=== PATIENT | female | born 1985 | race African-American/Black ===

== ENCOUNTER 2017-11-08 08:33 | Emergency (ER) | payer SELFPAY ==
[~2017-11-08] VITALS: Ht 160 cm; Wt 90.7 kg
[2017-11-08 09:04] VITALS: BP 129/78
--- NOTE | 2017-11-08 09:06 | Emergency Room Report ---
History of Present Illness General Chief Complaint: Complications Source: Patient Present Illness Allergies: Coded Allergies: No Known Allergies (Unverified , 11/08/17) Patient History Last Menstrual Period: 3 weeks ago Now: Yes - positive test Nursing Documentation-[facility] Past Medical History: No Stated History Physical Exam Physical Exam Vital Signs Date Time Temp Pulse Resp B/P (MAP) Pulse Ox O2 Delivery O2 Flow Rate FiO2 11/08/17 08:54 99.0 64 20 129/78 100 Room Air 99.0 Medical Decision Making Last Vital Signs Date Time Temp Pulse Resp B/P (MAP) Pulse Ox O2 Delivery O2 Flow Rate FiO2 11/08/17 08:54 99.0 64 20 129/78 100 Room Air 99.0 Referrals: NON PHYSICIAN (PCP) Norma Sparks M.D. Nov 08, 2017 09:06
--- NOTE | 2017-11-08 09:10 | Emergency Room Report ---
History of Present Illness General Chief Complaint: Complications Source: Patient Present Illness HPI 32-year-old female , 1 , last menstrual period was 4 weeks ago p/w vaginal bleeding x 9 days Patient states that she has had very light spotting for 9 days. no passage of clots. +crampy abdominal pain. Denies fever, chills, n/v, diarrhea, dysuria. Patient states that she saw the doctor 5 days ago who performed a urine test which was positive, no blood work or ultrasound was done Denies hx of ectopic pregnancies. Allergies: Coded Allergies: No Known Allergies (Unverified , 11/08/17) Patient History Past Medical History: see triage record Past Surgical History: none Pertinent Family History: none Last Menstrual Period: 3 weeks ago Now: Yes - positive test : 2 Reviewed Nursing Documentation: PMH: Agreed; PSxH: Agreed Nursing Documentation-PMH Past Medical History: No Stated History Review of Systems All Other Systems: negative except mentioned in HPI Physical Exam Vital Signs Date Time Temp Pulse Resp B/P (MAP) Pulse Ox O2 Delivery O2 Flow Rate FiO2 11/08/17 08:54 99.0 64 20 129/78 100 Room Air 99.0 Sp02 EP Interpretation: reviewed, normal General Appearance: normal inspection, well appearing, no apparent distress, alert, GCS 15, non-toxic Head: normocephalic, atraumatic Eyes: bilateral eye normal inspection, bilateral eye PERRL, bilateral eye EOMI ENT: normal ENT inspection, normal pharynx, normal voice, moist mucus membranes Neck: normal inspection, full range of motion, supple Respiratory: normal inspection, lungs clear, normal breath sounds, no respiratory distress, no retraction, no wheezing, speaking full sentences, chest symmetrical Cardiovascular #1: normal inspection, regular rate, rhythm, no edema, normal capillary refill Cardiovascular #2: 2+ radial (R), 2+ radial (L) Gastrointestinal: normal inspection, non tender, soft, non-distended, no guarding Musculoskeletal: normal inspection, back normal, normal range of motion, non- tender Neurologic: normal inspection, alert, oriented x3, responsive, motor strength/ tone normal, sensory intact, normal gait, speech normal Psychiatric: normal inspection, judgement/insight normal, memory normal Skin: normal inspection, normal color, no rash, warm/dry, well hydrated, normal turgor Medical Decision Making Diagnostic Impression: Primary Impression: Threatened ER Course 32-year-old female presents with vaginal bleeding DDX: Threatened / inevitable vs. ectopic Plan: cbc, bmp, bhcg, type and screen, ua, ucx pelvic sono Consider Rhogam is Rh- ER course: Pt remains stable/nontoxic appearing in ED. Pt has been ambulatory. VSS\ PELVIC sono performed - no gestational sac. pt bhcg low61 Disposition: Patient will be discharged to home. Strict return precautions to discussed with patient such as high fever, chills, abdominal pain, intractable nausea or vomiting, worsening/heavy bleeding, lightheadedness or syncope. Patient verbalized understanding. Patient instructed to follow up with her OBGYN within 48 hours without fail for repeat bhcg and sonogram. Patient agrees with plan. Please note that this Emergency Department Report was dictated using [employer] handler technology software, occasionally this can lead to erroneous entry secondary to interpretation by the dictation equipment. Laboratory Tests Test 11/08/17 08:50 11/08/17 09:00 Urine Color Pale yellow Urine Appearance Clear Urine pH 6.5 (4.5-8.0) Urine Specific [place] 1.010 (1.005-1.035) Urine Protein 1+ (NEGATIVE) H Urine Glucose (UA) Negative (NEGATIVE) Urine Ketones Negative (NEGATIVE) Urine Occult Blood 5+ (NEGATIVE) H Urine Nitrite Negative (NEGATIVE) Urine Bilirubin Negative (NEGATIVE) Urine Urobilinogen Normal MG/DL (0.0-1.0) Urine Leukocyte Esterase 1+ (NEGATIVE) H Urine RBC 2-4 /HPF (0 - 2) H Urine WBC 2-4 /HPF (0 - 2) Urine Squamous Epithelial Cells Moderate /LPF (NONE/OCC) H Urine Bacteria Few /HPF (NONE) Urine HCG, Qualitative Positive (NEGATIVE) White Blood Count 5.4 K/UL (4.8-10.8) Red Blood Count 4.43 M/UL (4.20-5.40) Hemoglobin 12.3 G/DL (12.0-16.0) Hematocrit 38.0 % (37.0-47.0) Mean Corpuscular Volume 86 FL (80-99) Mean Corpuscular Hemoglobin 27.8 PG (27.0-31.0) Mean Corpuscular Hemoglobin Concent 32.4 G/DL (32.0-36.0) Red Cell Distribution Width 12.7 % (11.6-14.8) Platelet Count 228 K/UL (150-450) Mean Platelet Volume 8.0 FL (6.5-10.1) Neutrophils (%) (Auto) 53.1 % (45.0-75.0) Lymphocytes (%) (Auto) 38.1 % (20.0-45.0) Monocytes (%) (Auto) 6.2 % (1.0-10.0) Eosinophils (%) (Auto) 0.6 % (0.0-3.0) Basophils (%) (Auto) 2.0 % (0.0-2.0) Sodium Level 136 MMOL/L (136-145) Potassium Level 3.7 MMOL/L (3.5-5.1) Chloride Level 105 MMOL/L (98-107) Carbon Dioxide Level 27 MMOL/L (21-32) Anion Gap 4 mmol/L (5-15) L Blood Urea Nitrogen 7 mg/dL (7-18) Creatinine 0.7 MG/DL (0.55-1.30) Estimate Glomerular Filtration Rate > 60 mL/min (>60) Glucose Level 110 MG/DL (74-106) H Calcium Level 8.4 MG/DL (8.5-10.1) L Total Bilirubin 0.2 MG/DL (0.2-1.0) Aspartate Amino Transferase (AST) 15 U/L (15-37) Alanine Aminotransferase (ALT) 26 U/L (12-78) Alkaline Phosphatase 50 U/L (46-116) Total Protein 6.7 G/DL (6.4-8.2) Albumin 3.4 G/DL (3.4-5.0) Globulin 3.3 g/dL Albumin/Globulin Ratio 1.0 (1.0-2.7) Lipase 93 U/L (73-393) Human Chorionic Gonadotropin, Quant 61 mIU/mL (1-6) H CT/MRI/US Diagnostic Results CT/MRI/US Diagnostic Results : Imaging Test Ordered: pelvic sono Impression no gestational sac Last Vital Signs Date Time Temp Pulse Resp B/P (MAP) Pulse Ox O2 Delivery O2 Flow Rate FiO2 11/08/17 08:54 99.0 64 20 129/78 100 Room Air 99.0 Disposition: HOME, SELF-CARE Condition: Improved Referrals: NON PHYSICIAN (PCP) Norma Sparks M.D. Nov 08, 2017 09:10
[2017-11-08 09:24] LABS: EOSINOPHILS % (AUTO) 0.6 % (0.0-3.0); HEMOGLOBIN 12.3 G/DL (12.0-16.0); LYMPHOCYTES % (AUTO) 38.1 % (20.0-45.0); MEAN CORPUSCULAR VOLUME 86 FL (80-99); MONOCYTES % (AUTO) 6.2 % (1.0-10.0); NEUTROPHILS % (AUTO) 53.1 % (45.0-75.0); PLATELET COUNT 228 K/UL (150-450); RED BLOOD COUNT 4.43 M/UL (4.20-5.40); RED CELL DISTRIBUTION WIDTH 12.7 % (11.6-14.8); WHITE BLOOD COUNT 5.4 K/UL (4.8-10.8)
[2017-11-08 09:27] LABS: APPEARANCE,URINE CLEAR; BILIRUBIN, URINE NEGATIVE (NEGATIVE); COLOR,URINE PALE YELLOW; GLUCOSE, URINE (UA) NEGATIVE (NEGATIVE); KETONES,URINE NEGATIVE (NEGATIVE); LEUKOCYTE ESTERASE ,URINE 1+ (NEGATIVE); NITRITE,URINE NEGATIVE (NEGATIVE); PH,URINE 6.5 (4.5-8.0); PROTEIN,URINE 1+ (NEGATIVE); UROBILINOGEN,URINE NORMAL MG/DL (0.0-1.0)
[2017-11-08 09:36] LABS: ANION GAP 4 mmol/L (5-15); BLOOD UREA NITROGEN 7 mg/dL (7-18); CALCIUM 8.4 MG/DL (8.5-10.1); CARBON DIOXIDE 27 MMOL/L (21-32); CHLORIDE 105 MMOL/L (98-107); CREATININE 0.7 MG/DL (0.55-1.30); POTASSIUM 3.7 MMOL/L (3.5-5.1); SODIUM 136 MMOL/L (136-145)
[2017-11-08 09:41] LABS: ALANINE AMINOTRANSFERASE 26 U/L (12-78); ALBUMIN 3.4 G/DL (3.4-5.0); ALKALINE PHOSPHATASE 50 U/L (46-116); ASPARTATE AMINO TRANSFERASE 15 U/L (15-37); BILIRUBIN,TOTAL 0.2 MG/DL (0.2-1.0)
[2017-11-08 11:05] VITALS: BP 131/76
--- NOTE | 2017-11-09 12:09 | Diagnostic Imaging Report ---
Indication:Lower abdominal and pelvic pain. Vaginal bleeding. Positive test Technique: Grayscale and duplex Doppler imaging of the pelvis performed utilizing a transabdominal scan and endovaginal scan. Comparison: None Findings: No IUP identified. Endometrial stripe measures 6 mm. Small amount of free fluid is present. Dopplerable blood flow within both ovaries which appear normal. A dominant, probable paraovarian cyst noted measuring 1.6 cm adjacent to the right ovary. Uterus is 7.8 x 5.4 x 4.5 cm. Right ovary 4.5 x 3 x 2.1 cm. Left ovary 4.3 x 3.7 x 1.8 cm. IMPRESSION: Negative pelvic ultrasound. No IUP identified. Early ectopic is not excludable. Correlate with quantitative beta-hCG. Follow-up quantitative beta-hCG and ultrasound recommended. Right ovarian versus parovarian cyst. Follow-up recommended.
== END 2017-11-08 11:05 | disposition home or self-care (01) ==
LOC: EMR 08:40
DX: O20.0 Threatened abortion (principal)
CPT/HCPCS: 36415; 76856; 80053; 81003; 81025; 83690; 84702; 85025; 86850; 86900; 86901; 99284

== ENCOUNTER 2019-01-09 12:20 | Emergency (ER) | payer OTHER ==
[~2019-01-09] VITALS: Ht 157.5 cm; Wt 77.6 kg
[2019-01-09 12:23] VITALS: BP 115/80
--- NOTE | 2019-01-09 12:40 | Emergency Room Report ---
History of Present Illness General Chief Complaint: Skin Rash/Abscess Source: Patient Present Illness HPI 33-year-old female with no significant past medical history here complaining of 2 days of semi-pruritic and painful rash in the left upper quadrant. Patient reports that she has been on amoxicillin for 3 days due to sinus infection however denies generalized body rash. Denies recent travel, camping, contact with allergens and animals. Patient reports that the rash first year with a tingling sensation in left upper quadrant and then blisters performed. Denies abdominal pain, nausea vomiting, fever and chills, pain radiation. Patient reports that the pain is mostly localized 3 out of 10 without radiation and has not taken any medication for pain however has been applying evix-qiy-aoyzpld hydrocortisone cream and been taking Benadryl for pruritus. Denies chest pain, shortness of breath, palpitation, and all other associated symptoms. Patient has regular menses and denies . Patient denies exposure to young infants and immunocompromise patient. Allergies: Coded Allergies: No Known Allergies (Unverified , 11/08/17) Patient History Past Medical History: see triage record Past Surgical History: unable to obtain Pertinent Family History: none Last Menstrual Period: 12/28/18 Now: No Immunizations: UTD Reviewed Nursing Documentation: PMH: Agreed; PSxH: Agreed Nursing Documentation-PMH Past Medical History: No Stated History Review of Systems All Other Systems: negative except mentioned in HPI Physical Exam Vital Signs Date Time Temp Pulse Resp B/P (MAP) Pulse Ox O2 Delivery O2 Flow Rate FiO2 01/09/19 12:23 98.1 99 18 115/80 (92) 96 Room Air Sp02 EP Interpretation: reviewed, normal General Appearance: normal inspection, well appearing, no apparent distress, alert, GCS 15 Head: normocephalic, atraumatic Eyes: bilateral eye normal inspection, bilateral eye PERRL ENT: normal ENT inspection, hearing grossly normal, normal pharynx Neck: normal inspection, full range of motion, supple Respiratory: normal inspection, chest non-tender, lungs clear, no wheezing Cardiovascular #1: normal inspection, normal peripheral pulses, regular rate, rhythm, no edema, no murmur, normal capillary refill Gastrointestinal: non tender, soft, no organomegaly, no peritonitis, other - Vesicular rash in the left upper quadrant and dermatomal formation and grouped Rectal: deferred Genitourinary: no CVA tenderness Musculoskeletal: normal inspection, back normal Neurologic: normal inspection, alert, oriented x3 Psychiatric: normal inspection, judgement/insight normal Skin: warm/dry, palpation normal, rash - Vesicular grouped rash in left upper quadrant in a dermatomal presentation Lymphatic: normal inspection, no adenopathy Medical Decision Making PA Attestation All my diagnosis and treatment plans were reviewed ad discussed with my supervising physician Dr. Scott Diagnostic Impression: Primary Impression: Shingles rash ER Course 33-year-old female with no significant past medical history here complaining of 2 days of semi-pruritic and painful rash in the left upper quadrant. Patient reports that she has been on amoxicillin for 3 days due to sinus infection however denies generalized body rash. Denies recent travel, camping, contact with allergens and animals. Patient reports that the rash first year with a tingling sensation in left upper quadrant and then blisters performed. Denies abdominal pain, nausea vomiting, fever and chills, pain radiation. Patient reports that the pain is mostly localized 3 out of 10 without radiation and has not taken any medication for pain however has been applying wzot-flr-mxhkusl hydrocortisone cream and been taking Benadryl for pruritus. Denies chest pain, shortness of breath, palpitation, and all other associated symptoms. Patient has regular menses and denies . Patient denies exposure to young infants and immunocompromise patient. Ddx considered but are not limited to: shingles, scabies, cellulitis, drug reaction, contact dermatitis Vital signs: are WNL, pt. is afebrile H&PE are most consistent with: shingles herpes zoster virus ORDERS: acyclovir, hydrocortisone cream ED INTERVENTIONS: None required at this time. DISCHARGE: At this time pt. is stable for d/c to home. Will provide printed patient care instructions, and any necessary prescriptions. Care plan and follow up instructions have been discussed with the patient prior to discharge. Follow-up with a primary care provider referral to lead quality technician advised take medication as directed Last Vital Signs Date Time Temp Pulse Resp B/P (MAP) Pulse Ox O2 Delivery O2 Flow Rate FiO2 01/09/19 12:23 98.1 99 18 115/80 (92) 96 Room Air Disposition: HOME, SELF-CARE Condition: Stable Scripts Hydrocortisone Oint 2.5% (Hydrocortisone Oint 2.5%) Y Oint 1 APPLIC TP BID, #20 GM Prov: Korey Plunkett 01/09/19 Acyclovir* (ZOVIRAX*) 800 Mg Tablet 800 MG ORAL FIVE TIMES A DAY for 7 Days, #35 TAB Prov: Korey Plunkett 01/09/19 Patient Instructions: Shingles, [id number] Additional Instructions: Take medication as directed follow-up with a primary care provider, avoid scrubbing over the affected area Korey Plunkett Jan 09, 2019 12:40
[2019-01-09] MEDS ORDERED: HYDROCORTISONE30 G1 TP (12:42)
[2019-01-09] MEDS ORDERED: ACYCLOVIR800 MG ORAL (12:42)
--- NOTE | 2019-01-09 12:50 | NUR ---
ED Nurse Note: Patient presents to ER due to multiple, red blisters on LLQ abdomen. Reports no fever or chills. No N/V noted. No facial grimacing or guarding noted.
--- NOTE | 2019-01-09 13:00 | NUR ---
ED Nurse Note: Pt cleared by health care Provider for discharge. DC instructions/prescription was given and explained to pt and verbalized understanding of teachings. All medical deviecs such as ID band removed. Pt is AAO x4, ambulatory and left with all personal belongings.
== END 2019-01-09 13:00 | disposition home or self-care (01) ==
LOC: EMR 12:55
DX: B02.9 Zoster without complications (principal)
CPT/HCPCS: 99282

== ENCOUNTER 2019-06-03 12:53 | Emergency (ER) | payer OTHER ==
[~2019-06-03] VITALS: Ht 160 cm; Wt 83.9 kg
[~2019-06-03 12:53] MED LIST: ACYCLOVIR800 MG ORAL; HYDROCORTISONE30 G1 TP
[2019-06-03] MEDS ORDERED: NKM (13:01)
--- NOTE | 2019-06-03 13:25 | Emergency Room Report ---
History of Present Illness General Chief Complaint: Gastrointestinal Bleed Source: Patient Present Illness HPI Patient presents with complaints of nausea vomiting Onset 2 days ago Patient reports that she has had several episodes of vomiting and now noticed some questionable red spots which she thought might be blood there is a note on the chart regarding pain rating towards her back however patient reports that her back pain is from her breast Denies any other recent fall or trauma Allergies: Coded Allergies: No Known Allergies (Unverified , 11/08/17) Patient History Past Medical History: see triage record Last Menstrual Period: currently Now: No : 2 Para: 0 Reviewed Nursing Documentation: PMH: Agreed; PSxH: Agreed Nursing Documentation-PMH Past Medical History: No Stated History Review of Systems All Other Systems: negative except mentioned in HPI Physical Exam Vital Signs Date Time Temp Pulse Resp B/P (MAP) Pulse Ox O2 Delivery O2 Flow Rate FiO2 06/03/19 12:56 98.2 94 17 114/78 (90) 97 Room Air Sp02 EP Interpretation: reviewed, normal General Appearance: well appearing, no apparent distress Head: normocephalic, atraumatic Eyes: bilateral eye PERRL, bilateral eye EOMI ENT: hearing grossly normal, normal pharynx, TMs + canals normal, uvula midline Neck: full range of motion, supple, no meningismus, no bony tend Respiratory: lungs clear, normal breath sounds, no rhonchi, no respiratory distress, no retraction, no accessory muscle use Cardiovascular #1: normal peripheral pulses, regular rate, rhythm, no edema, no gallop, no JVD, no murmur Gastrointestinal: normal bowel sounds, non tender, soft, no mass, no organomegaly, non-distended, no guarding, no hernia, no pulsatile mass, no rebound Genitourinary: no CVA tenderness Musculoskeletal: normal inspection Neurologic: oriented x3, responsive, inserter III-XII nml as tested, motor strength/ tone normal, sensory intact Psychiatric: mood/affect normal Skin: no rash Lymphatic: normal inspection, no adenopathy Medical Decision Making Diagnostic Impression: Primary Impression: Abdominal pain Additional Impression: Vomiting ER Course With the patient's history and examination, multiple differentials considered, including but not limited to , ectopic , ovarian torsion, gastritis, cholecystitis, pancreatitis, appendicitis Given the patient's complaints of possible blood in her vomit upper GI bleeding also considered patient's blood work are appropriate Patient remains hemodynamically stable No signs of any active vomiting at the facility And patient on repeat evaluation is stable for continued close outpatient follow -up Labs Test 06/03/19 13:15 White Blood Count 6.0 K/UL (4.8-10.8) Red Blood Count 4.59 M/UL (4.20-5.40) Hemoglobin 12.8 G/DL (12.0-16.0) Hematocrit 39.7 % (37.0-47.0) Mean Corpuscular Volume 86 FL (80-99) Mean Corpuscular Hemoglobin 27.8 PG (27.0-31.0) Mean Corpuscular Hemoglobin Concent 32.1 G/DL (32.0-36.0) Red Cell Distribution Width 11.9 % (11.6-14.8) Platelet Count 262 K/UL (150-450) Mean Platelet Volume 7.2 FL (6.5-10.1) Neutrophils (%) (Auto) 40.8 % (45.0-75.0) Lymphocytes (%) (Auto) 51.3 % (20.0-45.0) Monocytes (%) (Auto) 6.0 % (1.0-10.0) Eosinophils (%) (Auto) 0.3 % (0.0-3.0) Basophils (%) (Auto) 1.7 % (0.0-2.0) Urine HCG, Qualitative Negative (NEGATIVE) Sodium Level 138 MMOL/L (136-145) Potassium Level 3.2 MMOL/L (3.5-5.1) Chloride Level 104 MMOL/L (98-107) Carbon Dioxide Level 26 MMOL/L (21-32) Anion Gap 9 mmol/L (5-15) Blood Urea Nitrogen 10 mg/dL (7-18) Creatinine 0.9 MG/DL (0.55-1.30) Estimat Glomerular Filtration Rate > 60 mL/min (>60) Glucose Level 98 MG/DL (74-106) Calcium Level 8.6 MG/DL (8.5-10.1) Total Bilirubin 0.5 MG/DL (0.2-1.0) Aspartate Amino Transf (AST/SGOT) 13 U/L (15-37) Alanine Aminotransferase (ALT/SGPT) 23 U/L (12-78) Alkaline Phosphatase 49 U/L (46-116) Total Protein 7.1 G/DL (6.4-8.2) Albumin 3.6 G/DL (3.4-5.0) Globulin 3.5 g/dL Albumin/Globulin Ratio 1.0 (1.0-2.7) Lipase 45 U/L (73-393) Rhythm Strip Diag. Results EP Interpretation: yes Rate: 66 Rhythm: NSR, no PVC's, no ectopy Last Vital Signs Date Time Temp Pulse Resp B/P (MAP) Pulse Ox O2 Delivery O2 Flow Rate FiO2 06/03/19 12:56 98.2 94 17 114/78 (90) 97 Room Air Status: improved Disposition: HOME, SELF-CARE Condition: Improved Scripts Ondansetron* (ZOFRAN*) 4 Mg Tablet 4 MG ORAL Q6H PRN for Nausea & Vomiting for 7 Days, #21 TAB Prov: Adia Scott DO 06/03/19 Famotidine (PEPCID AC) 20 Mg Tablet 20 MG PO DAILY, #12 TAB Prov: Adia Scott DO 06/03/19 Referrals: MARIA L JOHNSON,REFERRING (PCP) Additional Instructions: Patient is provided with the discharge instructions notified to follow up with primary doctor in the next 2-3 days otherwise return to the er with any worsening symptoms. Please note that this report is being documented using [employer] technology. This can lead to erroneous entry secondary to incorrect interpretation by the dictating instrument. Adia Scott DO Jun 03, 2019 13:25
[2019-06-03] MEDS ORDERED: Mylanta II UD 30ml ORAL ONE (13:30)
[2019-06-03] MEDS ORDERED: Dicyclomine HCl 10mg/5ml oral soln ORAL ONE (13:30)
[2019-06-03 13:38] LABS: BASOPHILS % (AUTO) 1.7 % (0.0-2.0); EOSINOPHILS % (AUTO) 0.3 % (0.0-3.0); HEMATOCRIT 39.7 % (37.0-47.0); HEMOGLOBIN 12.8 G/DL (12.0-16.0); LYMPHOCYTES % (AUTO) 51.3 % (20.0-45.0); MEAN CORPUSCULAR VOLUME 86 FL (80-99); NEUTROPHILS % (AUTO) 40.8 % (45.0-75.0); PLATELET COUNT 262 K/UL (150-450); RED BLOOD COUNT 4.59 M/UL (4.20-5.40); RED CELL DISTRIBUTION WIDTH 11.9 % (11.6-14.8)
[2019-06-03 13:52] LABS: ANION GAP 9 mmol/L (5-15); BLOOD UREA NITROGEN 10 mg/dL (7-18); CALCIUM 8.6 MG/DL (8.5-10.1); CARBON DIOXIDE 26 MMOL/L (21-32); CHLORIDE 104 MMOL/L (98-107); CREATININE 0.9 MG/DL (0.55-1.30); POTASSIUM 3.2 MMOL/L (3.5-5.1); SODIUM 138 MMOL/L (136-145)
[2019-06-03 13:56] LABS: ALANINE AMINOTRANSFERASE 23 U/L (12-78); ALBUMIN 3.6 G/DL (3.4-5.0); ALKALINE PHOSPHATASE 49 U/L (46-116); ASPARTATE AMINO TRANSFERASE 13 U/L (15-37); BILIRUBIN,TOTAL 0.5 MG/DL (0.2-1.0)
[2019-06-03] MEDS ORDERED: PEPCID AC20 M2 PO (14:10)
[2019-06-03] MEDS ORDERED: ZOFRAN4 M3 ORAL (14:10)
[2019-06-03 14:17] VITALS: BP 125/71
--- NOTE | 2019-06-03 14:18 | NUR ---
ER DISCHARGE NOTE: Patient is cleared to be discharged per ERMD with spouse, pt is aox4, on room air, with stable vital signs. pt was given dc and prescription instructions, pt was able to verbalize understanding, pt id band removed without complications. pt is able to ambulate with steady gait. pt took all belongings.
== END 2019-06-03 14:17 | disposition home or self-care (01) ==
LOC: EMR 13:10
DX: R11.10 Vomiting, unspecified (principal); R10.9 Unspecified abdominal pain
CPT/HCPCS: 36415; 80053; 81025; 83690; 85025; 99283